=== PATIENT | female | born 1995 | race African-American/Black ===

== ENCOUNTER 2016-12-20 16:22 | Emergency (ER) | payer OTHER ==
[~2016-12-20 16:22] MED LIST: ACET50TA PO; ANUS2.5C2 PR; COLA100C PO; IBUP60TA PO; MILKSUS PO; MOTR200T44 PO; PRENTAB55 PO; TYLE325T5 PO
--- NOTE | 2016-12-20 17:30 | REP ---
Clinical: Pain with recent trauma . Technique: AP, lateral, bilateral oblique views of the right elbow. Findings: No acute fracture or dislocation is appreciated. Joint spaces and surrounding soft tissues appear normal. Lateral view demonstrates normal positioning to the anterior and posterior fat pads without evidence for effusion/hemarthrosis. No subcutaneous emphysema or foreign body identified. Impression: Normal right elbow radiographs. Signed by Ricardo Olivia MD 12/20/2016 05:22 P
[2016-12-20] MEDS ORDERED: KETOROLAC 30 MG/ML VIAL (J1885) As Ordered ONE (18:00)
--- NOTE | 2016-12-20 18:20 | EDDOCDS ---
Physician Documentation [facility] Name: Hasmukh Hess Age: 21 yrs Sex: Female : 1995 Arrival Date: 12/20/2016 Time: 16:22 Bed I10 / 23 Private MD: Fritz Horner DO. Disposition: 12/20/16 18:05 Discharged to Home/Self Care. Impression: Contusion of right elbow. - Condition is Stable. - Discharge Instructions: Elastic Bandage and RICE, Elbow Contusion, Arm Sling Use, [id number]. - Prescriptions for Naprosyn 500 mg Oral Tablet - take 1 tablet by ORAL route 2 times per day take with food; 30 tablet. - Medication Reconciliation, Local Pharmacy Hours form. - Follow up: [facility]; When: 1 week; Reason: Recheck today's complaints, Continuance of care, If not improving. - Problem is new. - Symptoms have improved. - Notes: Return to the ED for any further concerns Historical: - Allergies: no known allergies; - Home Meds: 1. none - PMHx: none; - PSHx: none; - Social history: Smoking status: Patient uses tobacco products, light tobacco smoker. No barriers to communication noted, The patient speaks fluent [place]inean, Speaks appropriately for age. - Family history: Not pertinent. - : The pt / caregiver states he / she is not on anticoagulants. Home medication list is obtained from the patient. - Exposure Risk Screening:: None identified. 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 7 in. (170.18 cm); Pain 10/10; 16:24 Body Mass Index 17.23 (49.90 kg, 170.18 cm) [facility] MDM: 16:43 Elbow, Complete Ordered. EDMS 17:52 Financial registration complete. gjb 17:54 Joaquin Wrap ordered. le 17:54 Ice Pack ordered. le 17:54 ketorolac 60 mg IM once ordered. le 17:54 Sling ordered. le 18:00 [facility] Payment Agreement was scanned into [employer] and attached to record. [facility] Administered Medications: 18:03 Drug: ketorolac 60 mg [ketorolac 30 mg/mL (1 mL) injection solution (2 mL)] Route: IM; dls Site: left gluteus; Signatures: Dispatcher [employer] EDYon Calloway RN RN bcj Scott, Debra, RN RN dls Westcott, Lisa, FNP FNP [place], Sandra Neva Bedolla The chart was reviewed and I authenticate all verbal orders and agree with the evaluation and treatment provided.Attachments: 18:00 [facility] Payment Agreement [facility] MTDD
--- NOTE | 2016-12-20 18:20 | EDDOCDS ---
Nurse's Notes [facility] Name: Hasmukh Hess Age: 21 yrs Sex: Female : 1995 Arrival Date: 12/20/2016 Time: 16:22 Bed I10 / 23 Private MD: Fritz Horner DO. Diagnosis: Contusion of right elbow Presentation: 12/20 16:38 Presenting complaint: Patient states: slipped and landed on right elbow today. c/o pain bcj in right elbow. unable to flex arm. denies hitting head. denies LOC. Adult Sepsis Screening: The patient does not have new or worsening altered mentation. Patient's respiratory rate is less than 22. Systolic blood pressure is greater than 100. Patient has a qSOFA score of 0- Negative Sepsis Screen. Suicide/Homicide risk assessment- the patient denies having any suicidal and/or homicidal ideations and does not present with any other emotional, behavioral or mental health complaints. Status: Patient is not a disabilities services officer or dependent. Transition of care: patient was not received from another setting of care. 16:38 Acuity: FELICITA Level 4 bcj 16:38 Method Of Arrival: Walkin/Carried/Asstd bcj Triage Assessment: 16:40 General: Appears in no apparent distress, comfortable, Behavior is cooperative. Pain: bcj Location: right elbow Pain currently is 10 out of 10 on a pain scale. HIV screening NA for this visit Offered previously. Musculoskeletal: Circulation, motion, and sensation intact Capillary refill < 3 seconds in right fingers. 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 none - PMHx: none; - PSHx: none; - Social history: Smoking status: Patient uses tobacco products, light tobacco smoker. No barriers to communication noted, The patient speaks fluent Cuban, Speaks appropriately for age. - Family history: Not pertinent. - : The pt / caregiver states he / she is not on anticoagulants. Home medication list is obtained from the patient. - Exposure Risk Screening:: None identified. Screenin:17 Screening information is obtained from the patient. Primary language is Cuban. Fall dls risk: No risks identified. Assistance ADL's: requires no assistance with activities of daily living. Abuse/DV Screen: The patient / caregiver reports he/she is: not in a situation that causes fear, pain or injury. Nutritional screening: No deficits noted. Advance Directives: Currently, there is no health care proxy. There is no active DNR order. There is no living will. There is no Power of Senior Planning Manager. Advance directive information has not previously been placed in an [facility] medical record. home support is adequate. Assessment: 18:14 General: Appears slender, uncomfortable, Behavior is cooperative. Awake, alert, dls oriented. Skin warm and dry. Moves all extremities. Bilateral breath sounds clear. Respirations unlabored. The patient / caregiver is instructed regarding the plan of care and ED course. Vital Signs: 16:24 BP 111 / 68; Pulse 82; Resp 18; Temp 99.2; Pulse Ox 97% ; Weight 49.9 kg; Height 5 ft. jlm 7 in. (170.18 cm); Pain 10/10; 16:24 Body Mass Index 17.23 (49.90 kg, 170.18 cm) [facility] Vitals: 16:24 Log In Time: December 20, 2016 at 16:24. [facility] ED Course: 16:23 Patient visited by Daya Lui, Bettye Cruz. [facility] 16:23 Fritz Horner is Private Physician. jl 16:23 Patient moved to Waiting jl 16:25 Patient moved to Pre RCE jl 16:40 Triage Initiated [facility] 16:41 Patient visited by Yon Montejo RN. bcj 17:45 Анна Hathaway FNP is [facility]. le 17:45 Patient visited by Анна Hathaway FNP. le 17:45 Patient visited by Анна Hathaway FNP. le 17:45 Patient moved to I10 / 23 le 17:51 Elbow, Complete Returned. EDMS 18:00 [facility] Payment Agreement was scanned into [employer] and attached to record. [facility] 18:04 [facility] is Referral Physician. le 18:17 Patient has correct armband on for positive identification. Bed in low position. Call dls light in reach. 18:19 No IV's were initiated during this patient's visit. No procedures done that require dls assistance. Administered Medications: 18:03 Drug: ketorolac 60 mg [ketorolac 30 mg/mL (1 mL) injection solution (2 mL)] Route: IM; dls Site: left gluteus; Order Results: Radiology Order: Elbow, Complete Test: Elbow, Complete REASON FOR EXAMINATION: pain right elbow after fall; Clinical: Pain with recent trauma .; ; Technique: AP, lateral, bilateral oblique views of the right elbow.; ; Findings:; No acute fracture or dislocation is appreciated. Joint spaces and surrounding; soft tissues appear normal. Lateral view demonstrates normal positioning to the; anterior and posterior fat pads without evidence for effusion/hemarthrosis. No; subcutaneous emphysema or foreign body identified.; ; Impression:; Normal right elbow radiographs.; ; ; Signed by; Riacrdo Olivia MD 12/20/2016 05:22 P; Outcome: 18:05 Discharge ordered by Provider. connie 18:18 The following High Risk Discharge criteria are identified: None. Discharged to home dls ambulatory. Condition: stable. Discharge instructions given to patient, Instructed on discharge instructions, follow up and referral plans. medication usage, Demonstrated understanding of instructions, medications, Pt was receptive of discharge instructions/ teaching. Prescriptions given X 1. No special radiology studies were completed. 18:19 Discharge Assessment: Patient awake, alert and oriented x 3. No cognitive and/or dls functional deficits noted. Patient verbalized understanding of disposition instructions. patient administered narcotics - no. Property sent home with patient. 18:19 Patient left the ED. dls Signatures: Dispatcher [employer] EDYon Calloway, RN Dione Fish RN RN dls Westcott, Lisa, HOME BASED ASSISTANT HOME BASED ASSISTANT Daya Blount, Collection Team Lead Unit Bharti Iqbal ALF
--- NOTE | 2016-12-22 19:21 | EDDOCDS ---
Physician Documentation [facility] Name: Hasmukh Hess Age: 21 yrs Sex: Female : 1995 Arrival Date: 12/20/2016 Time: 16:22 Bed I10 / 23 Private MD: Fritz Horner DO. Disposition: 12/20/16 18:05 Discharged to Home/Self Care. Impression: Contusion of right elbow. - Condition is Stable. - Discharge Instructions: Elastic Bandage and RICE, Elbow Contusion, Arm Sling Use, [id number]. - Prescriptions for Naprosyn 500 mg Oral Tablet - take 1 tablet by ORAL route 2 times per day take with food; 30 tablet. - Medication Reconciliation, Local Pharmacy Hours form. - Follow up: [facility]; When: 1 week; Reason: Recheck today's complaints, Continuance of care, If not improving. - Problem is new. - Symptoms have improved. - Notes: Return to the ED for any further concerns Historical: - Allergies: no known allergies; - Home Meds: 1. none - PMHx: none; - PSHx: none; - Social history: Smoking status: Patient uses tobacco products, light tobacco smoker. No barriers to communication noted, The patient speaks fluent [place] Islander, Speaks appropriately for age. - Family history: Not pertinent. - : The pt / caregiver states he / she is not on anticoagulants. Home medication list is obtained from the patient. - Exposure Risk Screening:: None identified. 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 7 in. (170.18 cm); Pain 10/10; 16:24 Body Mass Index 17.23 (49.90 kg, 170.18 cm) [facility] MDM: 16:43 Elbow, Complete Ordered. EDMS 17:52 Financial registration complete. gjb 17:54 Joaquin Wrap ordered. le 17:54 Ice Pack ordered. le 17:54 ketorolac 60 mg IM once ordered. le 17:54 Sling ordered. le 18:00 [facility] Payment Agreement was scanned into [employer] and attached to record. [facility] 12/21 12:03 T-Sheet-- Draft Copy was scanned into [employer] and attached to record. gb Administered Medications: 12/20 18:03 Drug: ketorolac 60 mg [ketorolac 30 mg/mL (1 mL) injection solution (2 mL)] Route: IM; dls Site: left gluteus; Signatures: Dispatcher [employer] Yon Doherty RN RN bcj Scott, Debra, RN RN dls Barnhardt, Gloria, Abhinav Reg Анна Chaidez FNP FNP [place], Sandra Neva Bedolla The chart was reviewed and I authenticate all verbal orders and agree with the evaluation and treatment provided.Attachments: 18:00 [facility] Payment Agreement [facility] 12/21 12:03 T-Sheet-- Draft Copy gb Chart Complete MTDD
--- NOTE | 2016-12-22 19:21 | EDDOCDS ---
Nurse's Notes [facility] Name: Hasmukh Hess Age: 21 yrs Sex: Female : 1995 Arrival Date: 12/20/2016 Time: 16:22 Bed I10 / 23 Private MD: Fritz Horner DO. Diagnosis: Contusion of right elbow Presentation: 12/20 16:38 Presenting complaint: Patient states: slipped and landed on right elbow today. c/o pain bcj in right elbow. unable to flex arm. denies hitting head. denies LOC. Adult Sepsis Screening: The patient does not have new or worsening altered mentation. Patient's respiratory rate is less than 22. Systolic blood pressure is greater than 100. Patient has a qSOFA score of 0- Negative Sepsis Screen. Suicide/Homicide risk assessment- the patient denies having any suicidal and/or homicidal ideations and does not present with any other emotional, behavioral or mental health complaints. Status: Patient is not a biomedical service engineer or dependent. Transition of care: patient was not received from another setting of care. 16:38 Acuity: FELICITA Level 4 bcj 16:38 Method Of Arrival: Walkin/Carried/Asstd bcj Triage Assessment: 16:40 General: Appears in no apparent distress, comfortable, Behavior is cooperative. Pain: bcj Location: right elbow Pain currently is 10 out of 10 on a pain scale. HIV screening NA for this visit Offered previously. Musculoskeletal: Circulation, motion, and sensation intact Capillary refill < 3 seconds in right fingers. 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 none - PMHx: none; - PSHx: none; - Social history: Smoking status: Patient uses tobacco products, light tobacco smoker. No barriers to communication noted, The patient speaks fluent Slovak, Speaks appropriately for age. - Family history: Not pertinent. - : The pt / caregiver states he / she is not on anticoagulants. Home medication list is obtained from the patient. - Exposure Risk Screening:: None identified. Screenin:17 Screening information is obtained from the patient. Primary language is Slovak. Fall dls risk: No risks identified. Assistance ADL's: requires no assistance with activities of daily living. Abuse/DV Screen: The patient / caregiver reports he/she is: not in a situation that causes fear, pain or injury. Nutritional screening: No deficits noted. Advance Directives: Currently, there is no health care proxy. There is no active DNR order. There is no living will. There is no Power of Tie Puller. Advance directive information has not previously been placed in an [facility] medical record. home support is adequate. Assessment: 18:14 General: Appears slender, uncomfortable, Behavior is cooperative. Awake, alert, dls oriented. Skin warm and dry. Moves all extremities. Bilateral breath sounds clear. Respirations unlabored. The patient / caregiver is instructed regarding the plan of care and ED course. Vital Signs: 16:24 BP 111 / 68; Pulse 82; Resp 18; Temp 99.2; Pulse Ox 97% ; Weight 49.9 kg; Height 5 ft. jlm 7 in. (170.18 cm); Pain 10/10; 16:24 Body Mass Index 17.23 (49.90 kg, 170.18 cm) [facility] Vitals: 16:24 Log In Time: December 20, 2016 at 16:24. [facility] ED Course: 16:23 Patient visited by Daya Lui, Bettye Cruz. [facility] 16:23 Fritz Horner is Private Physician. jl 16:23 Patient moved to Waiting [facility] 16:25 Patient moved to Pre RCE [facility] 16:40 Triage Initiated [facility] 16:41 Patient visited by Yon Montejo, MALIK. bcj 17:45 Анна Hathaway FNP is [facility]. le 17:45 Patient visited by Анна Hathaway FNP. le 17:45 Patient visited by Анна Hathaway FNP. le 17:45 Patient moved to I10 / 23 le 17:51 Elbow, Complete Returned. EDMS 18:00 [facility] Payment Agreement was scanned into [employer] and attached to record. [facility] 18:04 [facility] is Referral Physician. le 18:17 Patient has correct armband on for positive identification. Bed in low position. Call dls light in reach. 18:19 No IV's were initiated during this patient's visit. No procedures done that require dls assistance. 12/21 12:03 T-Sheet-- Draft Copy was scanned into [employer] and attached to record. gb Administered Medications: 12/20 18:03 Drug: ketorolac 60 mg [ketorolac 30 mg/mL (1 mL) injection solution (2 mL)] Route: IM; dls Site: left gluteus; Order Results: Radiology Order: Elbow, Complete Test: Elbow, Complete REASON FOR EXAMINATION: pain right elbow after fall; Clinical: Pain with recent trauma .; ; Technique: AP, lateral, bilateral oblique views of the right elbow.; ; Findings:; No acute fracture or dislocation is appreciated. Joint spaces and surrounding; soft tissues appear normal. Lateral view demonstrates normal positioning to the; anterior and posterior fat pads without evidence for effusion/hemarthrosis. No; subcutaneous emphysema or foreign body identified.; ; Impression:; Normal right elbow radiographs.; ; ; Signed by; Ricardo Olivia MD 12/20/2016 05:22 P; Outcome: 18:05 Discharge ordered by Provider. le 18:18 The following High Risk Discharge criteria are identified: None. Discharged to home dls ambulatory. Condition: stable. Discharge instructions given to patient, Instructed on discharge instructions, follow up and referral plans. medication usage, Demonstrated understanding of instructions, medications, Pt was receptive of discharge instructions/ teaching. Prescriptions given X 1. No special radiology studies were completed. 18:19 Discharge Assessment: Patient awake, alert and oriented x 3. No cognitive and/or dls functional deficits noted. Patient verbalized understanding of disposition instructions. patient administered narcotics - no. Property sent home with patient. 18:19 Patient left the ED. dls Signatures: Dispatcher [employer] EDYon Calloway RN RN bcj Scott, Debra, RN RN dls Barnhardt, Gloria, Reg Reg Анна Chaidez, JOCELYNE RUFFLERDaya Ramires, Search Planner Unit Bharti Iqbal Chart Complete MTDD
--- NOTE | 2016-12-22 19:21 | EDDOCDS ---
Physician Documentation [facility] Name: Hasmukh Hess Age: 21 yrs Sex: Female : 1995 Arrival Date: 12/20/2016 Time: 16:22 Bed I10 / 23 Private MD: Fritz Horner DO. Disposition: 12/20/16 18:05 Discharged to Home/Self Care. Impression: Contusion of right elbow. - Condition is Stable. - Discharge Instructions: Elastic Bandage and RICE, Elbow Contusion, Arm Sling Use, [id number]. - Prescriptions for Naprosyn 500 mg Oral Tablet - take 1 tablet by ORAL route 2 times per day take with food; 30 tablet. - Medication Reconciliation, Local Pharmacy Hours form. - Follow up: [facility]; When: 1 week; Reason: Recheck today's complaints, Continuance of care, If not improving. - Problem is new. - Symptoms have improved. - Notes: Return to the ED for any further concerns Historical: - Allergies: no known allergies; - Home Meds: 1. none - PMHx: none; - PSHx: none; - Social history: Smoking status: Patient uses tobacco products, light tobacco smoker. No barriers to communication noted, The patient speaks fluent Palestinian, Speaks appropriately for age. - Family history: Not pertinent. - : The pt / caregiver states he / she is not on anticoagulants. Home medication list is obtained from the patient. - Exposure Risk Screening:: None identified. 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 7 in. (170.18 cm); Pain 10/10; 16:24 Body Mass Index 17.23 (49.90 kg, 170.18 cm) [facility] MDM: 16:43 Elbow, Complete Ordered. EDMS 17:52 Financial registration complete. gjb 17:54 Joaquin Wrap ordered. le 17:54 Ice Pack ordered. le 17:54 ketorolac 60 mg IM once ordered. le 17:54 Sling ordered. le 18:00 [facility] Payment Agreement was scanned into [employer] and attached to record. [facility] 12/21 12:03 T-Sheet-- Draft Copy was scanned into [employer] and attached to record. gb Administered Medications: 12/20 18:03 Drug: ketorolac 60 mg [ketorolac 30 mg/mL (1 mL) injection solution (2 mL)] Route: IM; dls Site: left gluteus; Signatures: Dispatcher [employer] Yon Doherty RN RN bcj Scott, Debra, RN RN dls Barnhardt, Gloria, Abhinav Reg Анна Chaidez FNP FNP [place], Sandra Neva Bedolla The chart was reviewed and I authenticate all verbal orders and agree with the evaluation and treatment provided.Attachments: 18:00 [facility] Payment Agreement [facility] 12/21 12:03 T-Sheet-- Draft Copy gb Chart Complete MTDD
== END 2016-12-20 18:19 | disposition home or self-care (01) ==
LOC: M ED 16:22
DX: S50.01XA Contusion of right elbow, initial encounter (principal); W01.0XXA Fall on same level from slipping, tripping and stumbling without subsequent striking against object, initial encounter; Y92.098 Other place in other non-institutional residence as the place of occurrence of the external cause; Y93.89 Activity, other specified; Y99.8 Other external cause status; F17.200 Nicotine dependence, unspecified, uncomplicated
CPT/HCPCS: 73080; 96372; 99283; J1885

== ENCOUNTER 2017-05-23 12:59 | Emergency (ER) | payer OTHER ==
[~2017-05-23] VITALS: Ht 170.2 cm; Wt 47.5 kg
[~2017-05-23 12:59] MED LIST changes: -COLA100C PO; +COLA100C5 PO
--- NOTE | 2017-05-23 14:45 | REP ---
RIGHT INGUINAL ULTRASOUND: Right inguinal ultrasound performed. Imaging is performed at rest and with Valsalva maneuver. There does appear to be a small right femoral hernia containing bowel. This does not appear to be reducible. There are no definite associated signs of strangulation. No other abnormalities are detected. Signed by Pete Babcock MD 05/23/2017 07:31 P
[2017-05-23 15:40] VITALS: BP 108/71
[2017-05-23] MEDS ORDERED: IBUP80TA PO (16:03)
[2017-05-23] MEDS ORDERED: IBUPROFEN 800 MG TAB PO ONE (16:15)
== END 2017-05-23 16:14 | disposition home or self-care (01) ==
LOC: M ED 12:59
DX: K41.90 Unilateral femoral hernia, without obstruction or gangrene, not specified as recurrent (principal); F17.210 Nicotine dependence, cigarettes, uncomplicated

== ENCOUNTER 2017-06-23 07:59 | Day surgery (SDC) | payer OTHER ==
[~2017-06-23] VITALS: Ht 170.2 cm; Wt 49.9 kg
[~2017-06-23 07:59] MED LIST changes: +BUPIVACAINE HCL 0.25% 30 ML VIAL As Ordered ONE; +IBUP80TA PO; +LIDOCAINE 1% SDV INJ 30 ML VIAL As Ordered ONE
[2017-06-23] MEDS ORDERED: ceFAZolin SOD 1 GM in D5W MINI-BAG PLUS 50 ML IV ONE (08:15)
[2017-06-23] MEDS ORDERED: LIDOCAINE 1% MDV 20ML VIAL SQ ONE (08:15)
[2017-06-23] MEDS ORDERED: LR 1,000 ML IV ONE (08:15)
[2017-06-23] MEDS ORDERED: LR 1,000 ML IV SCH ×2 (08:15→12:45)
[2017-06-23 08:29] LABS: CONTROL LINE UCG INT CTR LINE PRESENT
[2017-06-23] MEDS ORDERED: GLYCOPYRROLATE INJ 0.2 MG/ML 2 ML VIAL As Ordered ONE (11:34)
[2017-06-23] MEDS ORDERED: KETOROLAC 60 MG/2 ML VIAL (J1885) As Ordered ONE (11:34)
[2017-06-23] MEDS ORDERED: PROPOFOL 200 MG/20 ML VIAL As Ordered ONE (11:34)
[2017-06-23] MEDS ORDERED: ONDANSETRON 4MG/2ML VIAL (J2405) As Ordered ONE (11:34)
[2017-06-23] MEDS ORDERED: NEOSTIGMINE 1MG/ML 5 ML SYRINGE (J2710) As Ordered ONE (11:34)
[2017-06-23] MEDS ORDERED: MIDAZOLAM INJ 2 MG/2 ML VIAL (J2250) As Ordered ONE (11:34)
[2017-06-23] MEDS ORDERED: dexameTHASONE 4 MG/ML 1ML VIAL (J1100) As Ordered ONE (11:34)
[2017-06-23] MEDS ORDERED: ePHEDrine SULFATE 25 MG/5 ML(5MG/ML) SYRINGE As Ordered ONE (11:34)
[2017-06-23] MEDS ORDERED: fentaNYL 250 MCG/5 ML INJECTION (J3010) As Ordered ONE (11:34)
[2017-06-23] MEDS ORDERED: LIDOCAINE 2% INJ 100 MG/5 ML SDV (FOR ANES.) As Ordered ONE (11:34)
[2017-06-23] MEDS ORDERED: NORC1TAB4 PO (12:34)
[2017-06-23] MEDS ORDERED: fentaNYL 100 MCG/2 ML INJECTION (J3010) IV PRN (12:45)
[2017-06-23] MEDS ORDERED: ONDANSETRON 4MG/2ML VIAL (J2405) IV PRN ×2 (12:45→13:00)
[2017-06-23] MEDS ORDERED: PERCOCET 5MG/325MG TAB PO PRN (12:45)
[2017-06-23] MEDS ORDERED: METOCLOPRAMIDE INJ 10MG/2ML VIAL (J2765) IV PRN (12:45)
[2017-06-23] MEDS ORDERED: NORCO, ANEXSIA 5/325MG TABLET (HYDROcodone/ACETAMINOPHEN) PO PRN ×2 (13:00)
[2017-06-23] MEDS: MEPERIDINE INJ 25 MG/ML VIAL (J2175) IV PRN ×2 (13:06→13:12)
[2017-06-23 15:40] VITALS: BP 114/72
[2017-06-23] MEDS ORDERED: KETOROLAC 30 MG/ML VIAL (J1885) IV SCH (17:00)
--- NOTE | 2017-07-13 13:10 | ROOPDOC ---
[facility] Report Of Operation Report of Operation DATE OF PROCEDURE: 06/23/2017 PREPROCEDURE DIAGNOSES: right femoral hernia. POSTPROCEDURE DIAGNOSES: tiny indirect inguinal hernia,no definite right femoral hernia but a piece of small bowel seen protruding through the defect lateral to the femoral vessels PROCEDURE: robotic-assisted laparoscopic right inguinal hernia, femoral hernia repair SURGEON: Angelia Tellez MD FRESH FOOD MANAGER: Xiao Cornell NP ANESTHESIA: General Anesthesia ESTIMATED BLOOD LOSS: Approximately 10 mL. COMPLICATIONS: none REMARKS:19-year-old female, very thin body habitus with complaints of bulging with pain on her right groin. On ultrasound study shows possibility of a right femoral hernia containing bowel.. DESCRIPTION OF PROCEDURE: Patient received 1 g of Ancef IV preoperatively for wound prophylaxis. Patient was brought to the operating room, placed supine on the operating table. Compression boots placed in both lower extremities for DVT prophylaxis. After adequate general anesthesia started, she was placed on a lithotomy position. A lynn catheter placed without difficulty. Her abdomen and groin/pelvic area then prepped and draped in the usual sterile fashion. After a surgical timeout we began our surgery. Entry to the abdomen done through a small incision above the umbilical skin cleft.She has a redundant skin around the umbilicus with some diastases of her midline abdomen from . A Veress needle is carefullyinserted on a controlled fashion. CO2 insufflation started to pressure 15 mmHg. Using the same incision a 5 mm Visiport was then placed under direct vision of laparoscope. The insertion site was inspected for injury and none was found. Patient was then positioned on a Trendelenburg position with the symptomatic ( left) side tilted upwards for adequate view of the hernia defect. 2 working ports placed to the right and left of the umbilicus along the same line. The da Cruz robot to our was then positioned in between the patient's legs and the trochars docked onto the robot. I then unscrubbed and to control of the camera and the laparoscopic instruments at the surgeon's console. On diagnostic laparoscopy, there is a tiny opening off the peritoneum at the indirect space was a very shallow defect with nothing protruding through it. Looking at the femoral space I could not identify any definite hernia at the area with no indentation of the peritoneum to suggest herniation.likewise no hernias found in the left side I then proceeded opening up her peritoneum over the right side. The peritoneum was opened up about 3 cm above the superior edge of the opening of the internal inguinal ring starting at the medial umbilical ligament going in an arc -like fashion laterally towards the level of the anterior superior iliac spine. This was then dissected mostly bluntly away from the abdominal wall. On approaching the inguinal hernia defect the hernia sac was pulled back into the preperitoneal space and carefully dissected off the round ligament which is adhered to the peritoneum/sac. I chose to open up the area surrounding the inguinal ligament to free up the whole of the sac to make sure this is adequately dissected. I continued dissecting the preperitoneal space medial to this area to get into the femoral space.. The femoral artery and vein were identified. There is a usual fatty/lymphatic deposition over the area but no definite defect that I could find going deep into the inguinal ligament. As I pulled back my camera, I noticed a piece of a small bowel laying on top of the femoral vessels. He has some attachments to the peritoneum underneath it so this was lysed with sharp dissection. I further dissected inferiorly and noted the space lateral to the femoral vessels and not medial which were I would expect the femoral hernia to be. No other abnormalities were found. Thus I chose a medium sized 3-D Max light mesh. This was rolled tightly and placed into the abdomen. I then placed this flattened abutting the abdominal wall at the indirect space and towards the femoral space. I got a keyhole on the mesh to wrap it around the round ligament so as this would cover the femoral space much better. This was secured to the lacunar ligament with a single stitch of 2 -0 Vicryl. with this placement the lateral space that I uncovered where piece of bowel seems to be abutting the area and possibly what the sonologist saw was not covered with the mesh. The space goes below the inguinal ligament. Thus I chose a piece of polypropylene plug (large) and trimmed this to the appropriate size and delivered it into that space and secured this to the inguinal ligament. Again after checking for hemostasis the preperitoneal space was then closed by suturing the peritoneal incision using a running stitch of 2-0V LOC. Prior to coming out a survey of the abdomen was done to make sure no inadvertent injury occurred. I then scrubbed back in. The abdomen was deflated and all ports removed. The 3 incisions were closed with 4-0 Monocryl in a subcuticular fashion. Dermabond was used for dressing. Lynn catheter was removed. Patient was then promptly awakened and extubated and brought to the recovery room stable . All counts of sponges and instruments were verified correct. ANGELIA TELLEZ MD Jul 13, 2017 13:10
== END 2017-06-23 15:45 | disposition home or self-care (01) ==
LOC: M SDC 07:59
PROVIDERS: ATTEND Surgery
DX: K40.90 Unilateral inguinal hernia, without obstruction or gangrene, not specified as recurrent (principal); F17.210 Nicotine dependence, cigarettes, uncomplicated
CPT/HCPCS: 49650; 84703; C1781

== ENCOUNTER 2018-05-27 14:16 | Emergency (ER) | payer OTHER ==
[2018-05-27 14:54] LABS: KETONE, URINE AUTO RFX NEGATIVE (NEGATIVE); NITRITE, URINE AUTO RFX NEGATIVE (NEGATIVE); RBC, URINE AUTO RFX 1 /HPF (0-3); SPECIFIC GRAVITY UR AUTO RFX 1.001 (1.002-1.035); SQUAM EPITHELIAL CELL UR AURFX 2 /HPF (0-6); WBC, URINE AUTO RFX 7 /HPF (0-3)
[2018-05-27 14:55] LABS: LEUKOCYTE ESTERASE UR AUTO RFX 3+ (NEGATIVE)
[2018-05-27 16:27] LABS: CONTROL LINE UCG INT CTR LINE PRESENT; URINE PREG TEST NEGATIVE (NEGATIVE)
== END 2018-05-27 17:02 | disposition home or self-care (01) ==
LOC: M ED 14:16
DX: N30.00 Acute cystitis without hematuria (principal); F17.200 Nicotine dependence, unspecified, uncomplicated
CPT/HCPCS: 84703

== ENCOUNTER → 2019-09-26 | Outpatient (CLI) | payer BC ==
[~2019-09-26] MED LIST changes: -ACET50TA PO; +BACT800T5 PO; -BUPIVACAINE HCL 0.25% 30 ML VIAL As Ordered ONE; +IBUP600T42 PO; -IBUP60TA PO; -LIDOCAINE 1% SDV INJ 30 ML VIAL As Ordered ONE; +MAPA500T2 PO; +MILK120011 PO; -MILKSUS PO; +NORC1TAB7 PO
[2019-09-26 18:34] LABS: BASO % 0.3 % (0.0-1.0); EOS # 0.2 10^3/uL (0.0-0.5); HEMATOCRIT 34.6 % (36.0-47.0); HEMOGLOBIN 11.3 g/dl (12.0-15.5); LYMPH # 2.6 10^3/uL (1.5-5.0); LYMPH % 35.8 % (24.0-44.0); MEAN CORPUSCULAR HEMOGLOBIN 29.4 pg (27.0-33.0); MEAN CORPUSCULAR HGB CONC 32.7 g/dl (32.0-36.5); MEAN CORPUSCULAR VOLUME 90.1 fl (80.0-96.0); MONO # 0.6 10^3/uL (0.0-0.8); MONO % 7.7 % (0.0-5.0); NEUTROPHILS # 3.9 10^3/uL (1.5-8.5); NEUTROPHILS % 52.8 % (36.0-66.0); PLATELET COUNT, AUTOMATED 300 10^3/uL (150-450); RED BLOOD COUNT 3.84 10^6/uL (4.00-5.40); WHITE BLOOD COUNT 7.3 10^3/uL (4.0-10.0)
[2019-09-26 19:58] LABS: CHLAMYDIA DNA AMPLIFICATION NEGATIVE (NEGATIVE); GC DNA AMPLIFICATION NEGATIVE (NEGATIVE)
[2019-09-27 10:35] LABS: HEPATITIS C VIRUS ABY INDEX 0.1 INDEX (<0.8); HIV 1&2 SCREEN CENTAUR NEGATIVE (NEGATIVE); RUBELLA IgG QUALITATIVE IMMUNE (IMMUNE)
== END ==
LOC: M PLALAB 15:22
PROVIDERS: ATTEND Advanced Practice Midwife
DX: Z34.81 Encounter for supervision of other normal pregnancy, first trimester (principal)

== ENCOUNTER 2019-10-22 20:36 | Emergency (ER) | payer BC ==
[~2019-10-22] VITALS: Ht 170.2 cm; Wt 55.9 kg
[2019-10-22 21:02] LABS: BASO % 0.3 % (0.0-1.0); EOS # 0.3 10^3/uL (0.0-0.5); EOS % 3.6 % (0.0-3.0); HEMATOCRIT 30.9 % (36.0-47.0); HEMOGLOBIN 10.4 g/dl (12.0-15.5); LYMPH % 39.7 % (24.0-44.0); MEAN CORPUSCULAR HEMOGLOBIN 29.7 pg (27.0-33.0); MEAN CORPUSCULAR HGB CONC 33.7 g/dl (32.0-36.5); MEAN CORPUSCULAR VOLUME 88.3 fl (80.0-96.0); MONO # 0.5 10^3/uL (0.0-0.8); MONO % 7.3 % (0.0-5.0); NEUTROPHILS # 3.7 10^3/uL (1.5-8.5); PLATELET COUNT, AUTOMATED 268 10^3/uL (150-450); WHITE BLOOD COUNT 7.4 10^3/uL (4.0-10.0)
[2019-10-22 21:40] LABS: BLOOD UREA NITROGEN 11 MG/DL (7-18); CARBON DIOXIDE LEVEL 25 MEQ/L (21-32); CHLORIDE LEVEL 104 MEQ/L (98-107); CREATININE FOR GFR 0.58 MG/DL (0.55-1.30); GLOMERULAR FILTRATION RATE > 60.0 (>60); GLUCOSE, FASTING 80 MG/DL (70-100); HCG, SERUM QUANTITATIVE 16134 MIU/ML; POTASSIUM SERUM 3.8 MEQ/L (3.5-5.1); SODIUM LEVEL 138 MEQ/L (136-145)
--- NOTE | 2019-10-22 22:27 | REPVR ---
PROCEDURE INFORMATION: Exam: US , Limited Exam date and time: 10/22/2019 9:54 PM Age: 24 years old Clinical indication: Lmp or gestational age (in weeks): 15w1d; Antepartum complications; Bleeding; ; Additional info: Spotting/16 weeks TECHNIQUE: Imaging protocol: Real-time ultrasound of the maternal uterus with image documentation. Exam focused on the clinical indication. COMPARISON: US OBS SINGEL GEST 11/18/2015 8:51 AM FINDINGS: GESTATION: Gestation: Single fetus within the uterus. Heart rate: heart rate 137 bpm. Presentation: Fetus in variable position. Placenta: Placenta is posterior and right lateral in location. No previa or abruption. Amniotic fluid: Amniotic fluid volume within normal limits. BIOMETRY: Estimated gestational age: Gestational age based on LMP is 16 weeks 1 day. IMPRESSION: Unremarkable scan at 16 weeks 1 day. A structural survey or biometric measurements were not requested or performed at this time. Detailed structural survey can be performed between 19-20 weeks if clinically desired. Electronically signed by: Jesus Manuel Keller On 10/22/2019 22:27:14 PM
[2019-10-22 23:04] VITALS: BP 100/55
== END 2019-10-22 23:16 | disposition home or self-care (01) ==
LOC: M ED 20:36
DX: O26.859 Spotting complicating pregnancy, unspecified trimester (principal); Z3A.16 16 weeks gestation of pregnancy; Z88.6 Allergy status to analgesic agent; Z91.040 Latex allergy status

== ENCOUNTER → 2019-11-09 | Outpatient (CLI) | payer BC ==
--- NOTE | 2019-11-10 02:40 | REP ---
Clinical: Anatomical evaluation. Comparison: 10/22/2019 . Findings: Examination demonstrates a single live intrauterine in breech presentation. motion is identified by technologist. Placenta is noted posterior/five and grade all zero without evidence for placenta previa or abruption. Amniotic fluid volume is normal. Cervix measures 3.8 cm in length and appears closed. No evidence for nuchal cord. Gestational age by LMP 18 weeks 5 days with SANJAY 04/06/2020 . Gestational age by current measurements 18 weeks 6 days with SANJAY 04/05/2020 . FHR equals 142 beats per minute. BPD 4.4 cm 19 weeks 1 day HC 15.9 cm 18 weeks 5 days AC 13.2 cm 18 weeks 5 days FL 2.8 cm 18 weeks 3 days HL 2.8 cm 19 weeks 1 day HC/AC ratio 1.20 Estimated weight 250 grams ( 44th percentile). Anatomical assessment demonstrates normal structures including cranium, choroid plexus, cavum, cerebellum/posterior fossa, facial features, lungs, four-chamber heart/ventricular outflow tracts, diaphragm, stomach, cord insertion/three-vessel cord, kidneys/bladder, and extremities. Impression: Single live intrauterine in breech presentation demonstrating appropriate interval growth. Limited evaluation the spine. Remainder of the anatomical assessment is complete and normal. Electronically Signed by Ricardo Olivia MD 11/10/2019 02:32 A
== END ==
LOC: M RAD 09:38
PROVIDERS: ATTEND Advanced Practice Midwife
DX: Z34.92 Encounter for supervision of normal pregnancy, unspecified, second trimester (principal); Z3A.18 18 weeks gestation of pregnancy

== ENCOUNTER → 2019-12-14 | Outpatient (CLI) | payer BC ==
--- NOTE | 2019-12-14 12:49 | REP ---
Clinical: Anatomical evaluation. Comparison: 11/09/2019 . Findings: Examination demonstrates a single live intrauterine in cephalic presentation. motion is identified by technologist. Placenta is noted posterior/fundal and grade I without evidence for placenta previa or abruption. Amniotic fluid volume is normal. Cervix measures 3.1 cm in length and appears closed. No evidence for nuchal cord. Gestational age by LMP 23 weeks 5 days with SANJAY 04/06/2020 . Gestational age by current measurements 23 weeks 5 days with SANJAY 04/06/2020 . FHR equals 132 beats per minute. Estimated weight 663 grams ( 58th percentile). Anatomical assessment demonstrates normal structures including cranium, choroid plexus, cavum, cerebellum/posterior fossa, facial features, lungs, four-chamber heart/ventricular outflow tracts, diaphragm, stomach, cord insertion/three-vessel cord, kidneys/bladder, spine, and extremities. Impression: Single live intrauterine in cephalic presentation demonstrating appropriate interval growth. Anatomical assessment is complete and normal. No gross abnormalities are identified.
== END ==
LOC: M WHC 10:00
PROVIDERS: ATTEND Advanced Practice Midwife
DX: Z36.2 Encounter for other antenatal screening follow-up (principal)

== ENCOUNTER → 2020-02-07 | Outpatient (REF) | payer BC ==
[2020-02-07 13:41] LABS: HEMATOCRIT 28.4 % (36.0-47.0); HEMOGLOBIN 9.3 g/dl (12.0-15.5); MEAN CORPUSCULAR HEMOGLOBIN 29.1 pg (27.0-33.0); MEAN CORPUSCULAR HGB CONC 32.7 g/dl (32.0-36.5); MEAN CORPUSCULAR VOLUME 88.8 fl (80.0-96.0); PLATELET COUNT, AUTOMATED 245 10^3/uL (150-450); WHITE BLOOD COUNT 7.2 10^3/uL (4.0-10.0)
== END ==
LOC: M PLALAB 08:59
PROVIDERS: ATTEND Advanced Practice Midwife
DX: Z34.82 Encounter for supervision of other normal pregnancy, second trimester (principal); Z3A.00 Weeks of gestation of pregnancy not specified

== ENCOUNTER → 2020-03-07 | Outpatient (REF) | payer BC | LOC: M SFHCWAGY 18:12 | PROVIDERS: ATTEND Advanced Practice Midwife | DX: Z36.85 Encounter for antenatal screening for Streptococcus B (principal); O99.013 Anemia complicating pregnancy, third trimester; Z3A.00 Weeks of gestation of pregnancy not specified ==

== ENCOUNTER 2020-04-06 18:50 | Inpatient (IN) | payer BC ==
[2020-04-06] VITALS (7 sets, daily range): BP systolic 92–116; BP diastolic 51–62
[~2020-04-06] VITALS: Ht 170.2 cm; Wt 72.8 kg
[2020-04-06] MEDS ORDERED: IRON325T2 PO (19:04)
[2020-04-06] MEDS ORDERED: PRENTAB9 PO (19:04)
[2020-04-06 19:38] LABS: HEMATOCRIT 35.2 % (36.0-47.0); HEMOGLOBIN 11.7 g/dl (12.0-15.5); MEAN CORPUSCULAR HEMOGLOBIN 29.5 pg (27.0-33.0); MEAN CORPUSCULAR HGB CONC 33.2 g/dl (32.0-36.5); MEAN CORPUSCULAR VOLUME 88.9 fl (80.0-96.0); PLATELET COUNT, AUTOMATED 214 10^3/uL (150-450); RED BLOOD COUNT 3.96 10^6/uL (4.00-5.40); WHITE BLOOD COUNT 7.2 10^3/uL (4.0-10.0)
--- NOTE | 2020-04-06 19:45 | HPEPDOC ---
Obstetrical History & Physical General Date of Admission Apr 06, 2020 at 18:50 History of Present Illness 24-year-old 4, para 2 presents at 40 weeks by LMP,confirmed by first trimester ultrasound for induction labor. Her course is been unremarkable. She initiated care first trimesters been appropriate throughout. Chief Complaint: Induction of labor Information Provided By: Patient Age: 24 : 4 Term: 2 Abortions: 1 Livin Care Care: Good Care Dating Final EDC: Apr 06, 2020 Final EDC by: LMP LMP: Jul 01, 2019 Past Medical History Past Obstetrical History : Past Obstetrical History: Multigravida Type of Delivery: Spontaneous Vaginal Del. Past Medical History Surgical History: Hernia repair Social History Marital Status: * Smoker: non-smoker Alcohol: Denies Drugs: denies Allergies Coded Allergies: shellfish derived (Verified Allergy, Unknown, 04/06/20) vomiting Medications Scheduled Ferrous Sulfate (Iron) 325 Mg Tablet, 1 TAB PO TID No.137/Iron/Folic Acd ( Vitamin Tablet) 1 Each Tablet, 1 TAB PO DAILY Physical Examination Physical Examination GENERAL: Alert and oriented times three. BREAST: . ABDOMEN: Gravid and non-tender to touch. FETUS: Is vertex (VTX) by sterile vaginal examination (SVE), fetus is vertex (VTX) by Khris. HEART RATE: Regular rate and rhythm. LUNGS: Clear to auscultation (CTA). Laboratory Data [facility] Laboratory Tests 2 04/06/20 18:58: Serology Scanned Report Hepatitis B Testing Pertinent Laboratoy Data RBC Antibody Screen: Negative HIV: Negative Hepatitis B: Negative Hepatitis C: Negative Rapid Plasma Reagin: Nonreactive Rubella: Immune Chlamydia/Gonorrhea: Negative Group B Streptococcus: Negative Anatomy Ultrasound Placenta Location: Posterior Normal Anatomy: Yes Placenta Previa: No Vaginal Examination Dilation: None Cervical Consistency: Firm Cervical Position: Posterior Assessment Heart Rate (FHR): 130 Variability: Moderate Accelerations: Positive Tocometer Contractions: No Assessment/Plan Assessment 24-year-old 4, para 2 at 40 weeks here for induction of labor. Reassuring status -Patient's been thoroughly counseled regards, induction labor. Discussed medications procedures as well as verbally consented for emergency surgery, blood products anesthesia. Patient desires to proceed with admission. Plans to initiate her induction labor with 50 g oral misoprostol. Plan Admit and orient. 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 Group B Streptococcus (GBS) negative. Labs and intravenous (IV) per unit protocol. Counseled on Pitocin and induction of labor (IOL). Anticipate normal spontaneous delivery (). C-S as appropriate. VINAY MILLER MD. Apr 06, 2020 19:44
[2020-04-06] MEDS: miSOPROStol 50 MCG 1/2 TAB (S0191) PO SCH (20:10)
[2020-04-07] VITALS (46 sets, daily range): BP systolic 87–151; BP diastolic 49–85
[2020-04-07] MEDS ORDERED: PROMETHAZINE INJ 25 MG/ML VIAL (J2550) IV PRN (00:30)
[2020-04-07] MEDS ORDERED: BUTORPHANOL 2 MG/ML INJ (J0595) IV ONE (00:30)
[2020-04-07] MEDS: miSOPROStol 50 MCG 1/2 TAB (S0191) PO SCH ×3 (04:25→08:34)
[2020-04-07] MEDS: LR 1,000 ML IV SCH ×3 (10:56→18:36)
[2020-04-07] MEDS ORDERED: LR 1,000 ML IV SCH (11:38)
[2020-04-07] MEDS ORDERED: OXYTOCIN DRIP 30 UNITS in IV 1 EA IV SCH ×2 (11:45→20:50)
--- NOTE | 2020-04-07 17:24 | IPNPDOC ---
Obstetrical Progress Note Date of Service Apr 07, 2020 Subjective Patient reports feeling a little more uncomfortable. She is currently on 4 milliunits of Pitocin. She received 3 doses of misoprostol prior Objective Vital Signs Date Time Temp Pulse Resp B/P (MAP) Pulse Ox O2 Delivery O2 Flow Rate FiO2 04/07/20 16:05 98.6 99 Room Air 04/07/20 15:57 67 16 107/59 (75) Assessment Heart Rate (FHR): 150 Variability: Moderate Heart Rate Tracing: Category I Tocometer Contractions: Yes Frequency: regular Sterile Vaginal Examination Dilation: 1cm (Cook's Replace 70ml/40 mL) Effacement (%): 50% Station: -2 Cervical Consistency: Soft Cervical Position: Posterior Postion/Presentation: Cephalic presentation Assessment and Plan Age: 24 : 4 Livin Status: Reassuring Anticipate: Vaginal Delivery VINAY MILLER MD. Apr 07, 2020 17:24
[2020-04-07] MEDS ORDERED: ACETAMINOPHEN TAB 650MG DOSE (2X325MG) PO PRN ×2 (17:30→21:00)
[2020-04-07] MEDS ORDERED: FENTANYL 2MCG/ML ROPIVACAINE 0.2% IN 0.9% NACL 100ML IVBAG As Ordered ONE (18:12)
[2020-04-07] MEDS ORDERED: diphenhydrAMINE 50MG/ML VIAL (J1200) IV PRN (18:45)
[2020-04-07] MEDS ORDERED: REFRIGERATOR IV KEYS XX PRN (18:45)
[2020-04-07] MEDS ORDERED: FENTANYL/ROPIVACAINE/NACL BAG 100 ML EPIDURAL SCH (18:45)
[2020-04-07] MEDS ORDERED: EPIDURAL COMMENT XX SCH (18:45)
[2020-04-07] MEDS ORDERED: ONDANSETRON 4MG/2ML VIAL IV PRN (18:45)
[2020-04-07] MEDS ORDERED: NALOXONE INJ 0.4MG/1ML VIAL (J2310 PER 1MG) IV PRN (18:45)
[2020-04-07] MEDS ORDERED: ePHEDrine SULFATE 25 MG/5 ML(5MG/ML) SYRINGE IV PRN (18:45)
[2020-04-07] MEDS ORDERED: LACTATED RINGER'S 1000 ML IV PRN (18:45)
[2020-04-07] MEDS ORDERED: EPIDURAL/PCA KEYS XX PRN (18:45)
--- NOTE | 2020-04-07 20:49 | DNPDOC ---
[facility] Delivery Note Delivery Note DATE OF DELIVERY: 04/07/2020 TIME OF : 2036 GENDER: Male. APGARS: 9 and 9. WEIGHT: 3710 grams or 8 pounds 3 ounces. LACERATIONS:. None ANESTHESIA: Epidural. ESTIMATED BLOOD LOSS: 300ml COUNTS: 5 laparotomy sponges accounted for prior to after delivery. DELIVERY NOTE: 04/07/2020 at 2036. This patient is a 24-year-old 4, now para 3, had a spontaneous vaginal delivery of viable male infant, Apgars, 9 and 9. Weight was 3710 g or 8 lbs. 3 oz. Head was delivered [occiput anterior (OA), followed by delivery of the shoulders and corpus. Infant was handed to mom with a good cry. Cord was clamped times two and was cut by the father of baby under my direction. Placenta was then drained and delivered grossly intact. A premixed bag of 500 mL of normal saline with 30 units of Pitocin was then bolused along with uterine massage until the uterus was firm. On inspection,. On reinspection, cervix, vagina, perineum was grossly intact and hemostatic. Mom and baby in recovery on stable condition. VINAY MILLER MD. Apr 07, 2020 20:49
[2020-04-07] MEDS ORDERED: MOM 30ML SUSPENSION UDC PO PRN (21:00)
[2020-04-07] MEDS ORDERED: IBUPROFEN 600 MG TAB PO PRN (21:00)
[2020-04-07] MEDS ORDERED: IBUPROFEN 800 MG TAB PO PRN (21:00)
[2020-04-07] MEDS ORDERED: DIBUCAINE 1% OINTMENT 30GM TOP PRN (21:00)
[2020-04-07] MEDS ORDERED: MEASLES,MUMPS,RUBELLA VACCINE INJ (MMR-II) (90707) SC SCH (21:00)
[2020-04-07] MEDS ORDERED: METHYLERGONOVINE MALEATE 0.2 MG TAB PO PRN (21:00)
[2020-04-07] MEDS ORDERED: RHOGAM 300 MCG (1500 IU) INJ (J2790) IM SCH (21:00)
[2020-04-07] MEDS ORDERED: DOCUSATE SODIUM 100 MG CAP PO PRN (21:00)
[2020-04-07] MEDS ORDERED: ANUSOL HC CREAM 30GM TOP PRN (21:00)
[2020-04-08 05:33] VITALS: BP 112/53
[2020-04-08 07:25] VITALS: BP 112/53
[2020-04-08] MEDS: PRENATAL VITAMINS CHEWABLE TABLET PO SCH (07:27)
--- NOTE | 2020-04-08 08:18 | IPNPDOC ---
Progress Note Date of Service: Apr 08, 2020 Day#: 1 Progress Note SUBJECT: Patient reports she has some cramping. She has been ambulating, voidi ng spontaneously without issue and tolerating regular diet. Breast feeding without issue and now supplementing. OBJECTIVE: VITAL SIGNS: Within normal limits, afebrile. Alert and oriented times three. Breath sounds clear to auscultation. Heart rate: Regular rate and rhythm, no murmurs, rubs or gallops. Abdomen: Fundus firm at U-1. Soft, NTTP. Minimal lochia. ASSESSMENT: Day 1 PLAN: 1. Anticipate discharge home tomorrow. 2. Tylenol and Motrin for pain. 3. Encourage breast feeding and ambulation. 4. Continue with supportive nursing care and support. VS, I&O, 24H, Fishbone Vital Signs/I&O Vital Signs Date Time Temp Pulse Resp B/P (MAP) Pulse Ox O2 Delivery O2 Flow Rate FiO2 04/08/20 07:25 98.9 78 16 112/53 98 Room Air I&O- Last 24 Hours up to 6 AM 04/08/20 05:59 Intake Total 4687.8 ml Output Total 3150 ml Balance 1537.8 ml JANET ABERNATHY CNM Apr 08, 2020 08:18
[2020-04-08] MEDS: ACETAMINOPHEN 500 MG TAB PO PRN ×2 (10:02→19:34)
[2020-04-08 17:50] VITALS: BP 115/58
[2020-04-09] MEDS: ACETAMINOPHEN 500 MG TAB PO PRN (05:22)
[2020-04-09 06:07] VITALS: BP 106/55
[2020-04-09] MEDS ORDERED: IBUP80TA PO (07:36)
[2020-04-09] MEDS ORDERED: ACET-683 PO (07:36)
[2020-04-09] MEDS: PRENATAL VITAMINS CHEWABLE TABLET PO SCH (09:25)
== END 2020-04-09 11:05 | disposition home or self-care (01) | DRG 560 ==
LOC: M LDI 18:50 → M OBS 04-07 22:25
PROVIDERS: ADMIT Obstetrics & Gynecology; ATTEND Obstetrics & Gynecology
PROC: 3E0P7GC Introduction of Other Therapeutic Substance into Female Reproductive, Via Natural or Artificial Opening (ICD-10-PCS; 2020-04-06)
PROC: 10E0XZZ Delivery of Products of Conception, External Approach (ICD-10-PCS; principal; 2020-04-07)
DX: O80 Encounter for full-term uncomplicated delivery (principal); Z3A.40 40 weeks gestation of pregnancy; Z37.0 Single live birth

== ENCOUNTER 2020-07-10 18:02 | Emergency (ER) | payer BC ==
[~2020-07-10] VITALS: Ht 170.2 cm; Wt 67.5 kg
[~2020-07-10 18:02] MED LIST changes: +ACET-683 PO; +IRON325T2 PO; +PRENTAB9 PO
[2020-07-10 18:04] VITALS: BP 117/59
[2020-07-11] MEDS ORDERED: KETO10TAB PO (13:21)
== END 2020-07-10 21:07 | disposition left against medical advice (07) ==
LOC: M ED 18:02
DX: Z53.21 Procedure and treatment not carried out due to patient leaving prior to being seen by health care provider (principal)

== ENCOUNTER 2020-07-11 09:48 | Emergency (ER) | payer BC ==
[~2020-07-11] VITALS: Ht 170.2 cm; Wt 66.2 kg
--- NOTE | 2020-07-11 12:48 | REPVR ---
PROCEDURE INFORMATION: Exam: CT Head Without Contrast Exam date and time: 07/11/2020 12:03 PM Age: 24 years old Clinical indication: Headache. TECHNIQUE: Imaging protocol: Computed tomography of the head without contrast. Radiation optimization: All CT scans at this facility use at least one of these dose optimization techniques: automated exposure control; mA and/or kV adjustment per patient size (includes targeted exams where dose is matched to clinical indication); or iterative reconstruction. COMPARISON: No relevant prior studies available. FINDINGS: Brain: Normal. No hemorrhage. Unremarkable white matter. No mass effect. Ventricles: Normal. No ventriculomegaly. Bones/joints: Unremarkable. No acute fracture. Sinuses: Visualized sinuses are unremarkable. No fluid levels. Mastoid air cells: Visualized mastoid air cells are well aerated. Soft tissues: Unremarkable. IMPRESSION: No acute intracranial abnormality. Electronically signed by: Prashant Davis On 07/11/2020 12:48:39 PM
[2020-07-11] MEDS ORDERED: KETO10TAB PO (13:21)
[2020-07-11 13:29] VITALS: BP 127/82
[2020-07-11] MEDS ORDERED: KETOROLAC TROMETHAMINE 10 MG TAB PO ONE (13:45)
== END 2020-07-11 13:45 | disposition home or self-care (01) ==
LOC: M ED 09:48
DX: R51 Headache (principal); Z91.018 Allergy to other foods

== ENCOUNTER → 2021-11-14 | Outpatient (REF) | payer OTHER, BC ==
[~2021-11-14] MED LIST changes: +KETO10TAB PO
== END ==
LOC: M SFHCWAGY 13:23
PROVIDERS: ATTEND Advanced Practice Midwife
DX: Z12.4 Encounter for screening for malignant neoplasm of cervix (principal)

== ENCOUNTER 2022-01-24 08:25 | Emergency (ER) | payer BC, OTHER ==
[~2022-01-24] VITALS: Ht 170.2 cm; Wt 58.6 kg
[2022-01-24] MEDS ORDERED: IBUPROFEN 600MG TAB PO ONE (10:25)
[2022-01-24 10:35] VITALS: BP 126/58
== END 2022-01-24 10:36 | disposition home or self-care (01) ==
LOC: M ED 08:25
DX: M25.571 Pain in right ankle and joints of right foot (principal); Z91.018 Allergy to other foods; F17.210 Nicotine dependence, cigarettes, uncomplicated

== ENCOUNTER → 2022-05-17 | Outpatient (REF) | payer OTHER ==
[2022-05-17 20:16] LABS: GC DNA AMPLIFICATION NEGATIVE (NEGATIVE)
== END ==
LOC: M LAB REF 18:09
PROVIDERS: ATTEND Physician Assistant
DX: N89.8 Other specified noninflammatory disorders of vagina (principal)

== ENCOUNTER → 2022-06-12 | Outpatient (REF) | payer OTHER ==
[2022-06-12 12:18] LABS: APPEARANCE, URINE MANUAL CLEAR (CLEAR); COLOR, URINE MANUAL YELLOW (YELLOW)
[2022-06-12 12:19] LABS: BILIRUBIN, URINE MANUAL NEGATIVE (NEGATIVE); BLOOD URINE MANUAL NEGATIVE (NEGATIVE); GLUCOSE, URINE (UA) MANUAL NEGATIVE (NEGATIVE); KETONE, URINE MANUAL NEGATIVE (NEGATIVE); LEUKOCYTE ESTERASE, URINE MAN NEGATIVE (NEGATIVE); NITRITE, URINE MANUAL NEGATIVE (NEGATIVE); PROTEIN, URINE MANUAL NEGATIVE (NEGATIVE); SPECIFIC GRAVITY,URINE MANUAL 1.015 (1.002-1.035); UROBILINOGEN, URINE MANUAL NORMAL (NORMAL)
== END ==
LOC: M LAB REF 11:58
PROVIDERS: ATTEND Physician Assistant Medical
DX: N39.0 Urinary tract infection, site not specified (principal)

== ENCOUNTER 2023-03-10 01:35 | Emergency (ER) | payer OTHER ==
[~2023-03-10] VITALS: Ht 170.2 cm; Wt 56.1 kg
[2023-03-10 01:35] VITALS: BP 124/78
== END 2023-03-10 04:51 | disposition left against medical advice (07) ==
LOC: M ED 01:35
DX: S09.90XA Unspecified injury of head, initial encounter (principal); X58.XXXA Exposure to other specified factors, initial encounter; Y92.89 Other specified places as the place of occurrence of the external cause; Y93.89 Activity, other specified; Y99.8 Other external cause status; Z53.21 Procedure and treatment not carried out due to patient leaving prior to being seen by health care provider

== ENCOUNTER 2023-03-14 18:24 | Emergency (ER) | payer OTHER ==
[~2023-03-14] VITALS: Ht 170.2 cm; Wt 54.3 kg
[2023-03-14 18:25] VITALS: BP 131/80
== END 2023-03-14 22:45 | disposition left against medical advice (07) ==
LOC: M ED 18:24
DX: S09.90XA Unspecified injury of head, initial encounter (principal); X58.XXXA Exposure to other specified factors, initial encounter; Y92.89 Other specified places as the place of occurrence of the external cause; Y93.89 Activity, other specified; Y99.8 Other external cause status; Z53.21 Procedure and treatment not carried out due to patient leaving prior to being seen by health care provider

== ENCOUNTER 2023-03-15 09:50 | Emergency (ER) | payer OTHER ==
[~2023-03-15] VITALS: Ht 170.2 cm; Wt 54.3 kg
[2023-03-15] MEDS ORDERED: KETOROLAC TROMETHAMINE 10 MG TAB PO ONE (11:25)
[2023-03-15 12:35] VITALS: BP 130/76
== END 2023-03-15 12:39 | disposition home or self-care (01) ==
LOC: M ED 09:50
DX: S02.32XA Fracture of orbital floor, left side, initial encounter for closed fracture (principal); Y04.8XXA Assault by other bodily force, initial encounter; Y92.89 Other specified places as the place of occurrence of the external cause; Y93.89 Activity, other specified; Y99.8 Other external cause status; F17.200 Nicotine dependence, unspecified, uncomplicated; Z91.013 Allergy to seafood

== ENCOUNTER → 2024-01-28 | Outpatient (REF) | payer OTHER ==
[2024-01-28 21:30] LABS: APPEARANCE, URINE HAZY (CLEAR); BACTERIA, URINE AUTO NEGATIVE (NEGATIVE); BILIRUBIN, URINE AUTO NEGATIVE (NEGATIVE); BLOOD, URINE BLOOD 1+ (NEGATIVE); COLOR, URINE YELLOW (YELLOW); GLUCOSE, URINE (UA) AUTO NEGATIVE (NEGATIVE); KETONE, URINE AUTO NEGATIVE (NEGATIVE); LEUKOCYTE ESTERASE, URINE AUTO 3+ (NEGATIVE); MUCUS, URINE SMALL (NEGATIVE); NITRITE, URINE AUTO NEGATIVE (NEGATIVE); PROTEIN, URINE AUTO NEGATIVE (NEGATIVE); RBC, URINE AUTO 2 /HPF (0-3); SPECIFIC GRAVITY URINE AUTO 1.003 (1.002-1.035); SQUAMOUS EPITHELIAL CELL UR AU 3 /HPF (0-6); UROBILINOGEN, URINE AUTO 0.2 mg/dL (0.0-2.0); WBC, URINE AUTO 31 /HPF (0-3)
== END ==
LOC: M LAB REF 21:07
PROVIDERS: ATTEND Physician Assistant
DX: N39.0 Urinary tract infection, site not specified (principal)

== ENCOUNTER → 2024-08-31 | Outpatient (REF) | payer OTHER ==
[~2024-08-31] MED LIST changes: +METR-265 PO
[2024-08-31 17:44] LABS: APPEARANCE, URINE CLOUDY (CLEAR); BACTERIA, URINE AUTO 1+ (NEGATIVE); BILIRUBIN, URINE AUTO NEGATIVE (NEGATIVE); BLOOD, URINE BLOOD NEGATIVE (NEGATIVE); COLOR, URINE AMBER (YELLOW); GLUCOSE, URINE (UA) AUTO NEGATIVE (NEGATIVE); KETONE, URINE AUTO TRACE mg/dL (NEGATIVE); LEUKOCYTE ESTERASE, URINE AUTO 1+ (NEGATIVE); MUCUS, URINE SMALL (NEGATIVE); NITRITE, URINE AUTO NEGATIVE (NEGATIVE); PROTEIN, URINE AUTO NEGATIVE (NEGATIVE); RBC, URINE AUTO 0 /HPF (0-3); SPECIFIC GRAVITY URINE AUTO 1.015 (1.002-1.035); SQUAMOUS EPITHELIAL CELL UR AU 6 /HPF (0-6); WBC, URINE AUTO 9 /HPF (0-3)
== END ==
LOC: M LAB REF 16:56
PROVIDERS: ATTEND Physician Assistant Medical
DX: N39.0 Urinary tract infection, site not specified (principal)

== ENCOUNTER 2024-09-04 04:49 | Emergency (ER) | payer OTHER ==
[~2024-09-04] VITALS: Ht 170.2 cm; Wt 60.3 kg
[~2024-09-04 04:49] MED LIST changes: -METR-265 PO
[2024-09-04 07:18] LABS: URINE PREG TEST NEGATIVE (NEGATIVE)
[2024-09-04 07:34] VITALS: BP 122/65; TEMP 98.8; O2SAT 100
[2024-09-04 07:59] LABS: Trichomonas vaginalis (AMP) POSITIVE (NEGATIVE)
[2024-09-04 08:31] LABS: GC DNA AMPLIFICATION NEGATIVE (NEGATIVE)
[2024-09-04] MEDS ORDERED: METR-265 PO (10:01)
== END 2024-09-04 07:37 | disposition home or self-care (01) ==
LOC: M ED 04:49
DX: T19.2XXA Foreign body in vulva and vagina, initial encounter (principal); A59.01 Trichomonal vulvovaginitis; Z86.19 Personal history of other infectious and parasitic diseases; Z87.59 Personal history of other complications of pregnancy, childbirth and the puerperium; F17.210 Nicotine dependence, cigarettes, uncomplicated; Z91.013 Allergy to seafood

== ENCOUNTER → 2024-11-11 | Outpatient (REF) | payer OTHER ==
[~2024-11-11] MED LIST changes: +METR-265 PO
[2024-11-11 14:29] LABS: APPEARANCE, URINE CLEAR (CLEAR); BACTERIA, URINE AUTO NEGATIVE (NEGATIVE); BILIRUBIN, URINE AUTO NEGATIVE (NEGATIVE); BLOOD, URINE BLOOD NEGATIVE (NEGATIVE); COLOR, URINE STRAW (YELLOW); GLUCOSE, URINE (UA) AUTO NEGATIVE (NEGATIVE); KETONE, URINE AUTO NEGATIVE (NEGATIVE); LEUKOCYTE ESTERASE, URINE AUTO NEGATIVE (NEGATIVE); NITRITE, URINE AUTO NEGATIVE (NEGATIVE); PROTEIN, URINE AUTO NEGATIVE (NEGATIVE); RBC, URINE AUTO 0 /HPF (0-3); SPECIFIC GRAVITY URINE AUTO 1.002 (1.002-1.035); SQUAMOUS EPITHELIAL CELL UR AU 0 /HPF (0-6); UROBILINOGEN, URINE AUTO 0.2 mg/dL (0.0-2.0); WBC, URINE AUTO 0 /HPF (0-3)
[2024-11-11 15:13] LABS: Trichomonas vaginalis (AMP) NOT DETECTED (NEGATIVE)
[2024-11-11 15:37] LABS: GC DNA AMPLIFICATION POSITIVE (NEGATIVE)
== END ==
LOC: M LAB REF 13:37
PROVIDERS: ATTEND Physician Assistant
DX: N39.0 Urinary tract infection, site not specified (principal)

== ENCOUNTER → 2025-05-31 | Outpatient (REF) | payer OTHER ==
[2025-05-31 17:50] LABS: APPEARANCE, URINE CLEAR (CLEAR); BACTERIA, URINE AUTO 1+ (NEGATIVE); BILIRUBIN, URINE AUTO NEGATIVE (NEGATIVE); BLOOD, URINE BLOOD NEGATIVE (NEGATIVE); GLUCOSE, URINE (UA) AUTO NEGATIVE (NEGATIVE); KETONE, URINE AUTO NEGATIVE (NEGATIVE); LEUKOCYTE ESTERASE, URINE AUTO NEGATIVE (NEGATIVE); MUCUS, URINE SMALL (NEGATIVE); NITRITE, URINE AUTO NEGATIVE (NEGATIVE); PROTEIN, URINE AUTO NEGATIVE (NEGATIVE); RBC, URINE AUTO 0 /HPF (0-3); SPECIFIC GRAVITY URINE AUTO 1.013 (1.002-1.035); SQUAMOUS EPITHELIAL CELL UR AU 7 /HPF (0-6); UROBILINOGEN, URINE AUTO 0.2 mg/dL (0.0-2.0); WBC, URINE AUTO 0 /HPF (0-3)
[2025-05-31 18:54] LABS: Trichomonas vaginalis (AMP) NOT DETECTED (NEGATIVE)
[2025-05-31 19:17] LABS: GC DNA AMPLIFICATION NEGATIVE (NEGATIVE)
== END ==
LOC: M LAB REF 17:20
PROVIDERS: ATTEND Physician Assistant
DX: N39.0 Urinary tract infection, site not specified (principal); Z20.2 Contact with and (suspected) exposure to infections with a predominantly sexual mode of transmission

== ENCOUNTER → 2025-06-19 | Outpatient (REF) | payer OTHER ==
[2025-06-19 18:48] LABS: APPEARANCE, URINE CLEAR (CLEAR); BACTERIA, URINE AUTO NEGATIVE (NEGATIVE); BILIRUBIN, URINE AUTO NEGATIVE (NEGATIVE); BLOOD, URINE BLOOD NEGATIVE (NEGATIVE); GLUCOSE, URINE (UA) AUTO NEGATIVE (NEGATIVE); KETONE, URINE AUTO NEGATIVE (NEGATIVE); LEUKOCYTE ESTERASE, URINE AUTO NEGATIVE (NEGATIVE); NITRITE, URINE AUTO NEGATIVE (NEGATIVE); PROTEIN, URINE AUTO NEGATIVE (NEGATIVE); RBC, URINE AUTO 0 /HPF (0-3); SPECIFIC GRAVITY URINE AUTO 1.001 (1.002-1.035); SQUAMOUS EPITHELIAL CELL UR AU 1 /HPF (0-6); UROBILINOGEN, URINE AUTO 0.2 mg/dL (0.0-2.0); WBC, URINE AUTO 0 /HPF (0-3)
[2025-06-19 19:51] LABS: Trichomonas vaginalis (AMP) NOT DETECTED (NEGATIVE)
[2025-06-19 20:16] LABS: GC DNA AMPLIFICATION NEGATIVE (NEGATIVE)
== END ==
LOC: M LAB REF 17:27
PROVIDERS: ATTEND Physician Assistant Medical
DX: Z20.2 Contact with and (suspected) exposure to infections with a predominantly sexual mode of transmission (principal)

== ENCOUNTER → 2025-07-19 | Outpatient (REF) | payer OTHER ==
[2025-07-19 20:09] LABS: APPEARANCE, URINE HAZY (CLEAR); BACTERIA, URINE AUTO 1+ (NEGATIVE); BILIRUBIN, URINE AUTO NEGATIVE (NEGATIVE); BLOOD, URINE BLOOD NEGATIVE (NEGATIVE); GLUCOSE, URINE (UA) AUTO NEGATIVE (NEGATIVE); KETONE, URINE AUTO NEGATIVE (NEGATIVE); LEUKOCYTE ESTERASE, URINE AUTO 2+ (NEGATIVE); NITRITE, URINE AUTO NEGATIVE (NEGATIVE); PROTEIN, URINE AUTO NEGATIVE (NEGATIVE); RBC, URINE AUTO 0 /HPF (0-3); SPECIFIC GRAVITY URINE AUTO 1.011 (1.002-1.035); SQUAMOUS EPITHELIAL CELL UR AU 12 /HPF (0-6); UROBILINOGEN, URINE AUTO 0.2 mg/dL (0.0-2.0); WBC, URINE AUTO 1 /HPF (0-3)
[2025-07-19 21:28] LABS: Trichomonas vaginalis (AMP) NOT DETECTED (NEGATIVE)
[2025-07-19 21:52] LABS: GC DNA AMPLIFICATION NEGATIVE (NEGATIVE)
== END ==
LOC: M LAB REF 19:34
PROVIDERS: ATTEND Physician Assistant
DX: N39.0 Urinary tract infection, site not specified (principal); Z20.2 Contact with and (suspected) exposure to infections with a predominantly sexual mode of transmission